=== PATIENT | female | born 1945 ===

== ENCOUNTER → 2017-01-06 | Outpatient (CLI) | payer MEDICARE, OTHER ==
[2017-01-06 15:06] LABS: ALBUMIN 3.8 gm/dL (3.5-5.0); BLOOD UREA NITROGEN 14 mg/dL (6-24); CHLORIDE 106 mMol/L (96-110); CO2 32 mMol/L (22-32); CREATININE 0.9 mg/dL (0.5-1.1); ESTIMATED GFR (MDRD EQUATION) > 60; MAGNESIUM 2.2 mg/dL (1.8-2.6); PHOSPHORUS 2.5 mg/dL (2.5-4.9); SODIUM 141 mMol/L (135-145)
== END ==
LOC: LCNC 14:35
PROVIDERS: Internal Medicine Interventional Cardiology
DX: R00.2 Palpitations (principal)

== ENCOUNTER → 2017-01-16 | Outpatient (CLI) | payer MEDICARE, OTHER ==
--- NOTE | ~2017-01-16 | ESTC ---
Cardiac Perfusion Imaging Demographics Patient Name DANYA Ugalde Gender Female Patient Number [id number] Race Visit Number [id number] Ethnicity [employer] ID Room Number Accession Number [id number] Height 61 inches Date of 1945 Weight 206 pounds Interpreting Abhilash Webster MD Date of study 01/16/2017 Physician Supervising /MADHU Parks [place] Technologist Ghazal Roberts APRN Ordering Physician Abhilash Webster MD Stress records technician Stress ECG Reading [place] Nurse Cheyanne Murphy Physician ADRIANE RN Medications Reviewed with Patient prior to Procedure. Procedure Procedure Type: Nuclear Stress Test:Exercise, Cardiolite Stress Test Procedure Start time: 01/16/2017 08:50 Indications: Chest pain. Risk Factors The patient risk factors include:prior PCI on 09/07/2009;treated hypercholesterolemia, treated hypertension, family history of premature CAD and dyslipidemia. Conclusions Summary Cardiolite SPECT images demonstrate homogenous uptake of radioactive tracer. There is no evidence of inducible reversible defect and no evidence of underlying fixed defect. Normal TID ratio Gated images demonstrate normal left ventricular systolic function without evidence of inducible wall motion abnormalities. LVEF is 79% Stress Protocols Resting ECG RSR without ST or T wave changes Resting HR:75 bpm Resting BP:154/67 mmHg Pre-stress physical exam: Patient assessed by prior to testing. Sore ribs after a fall. Bruise right arm. No chest pain or shortness of breath. Stress Protocol:Exercise Peak HR:130 bpm HR response: Appropriate Peak BP:180/70 mmHg BP response: Appropriate Predicted HR: 148 bpm HR/BP product:66568 % of predicted HR: 88 Test duration:06:00 min Reason for termination:Target heart rate Perceived exertion:13 ECG Findings No ECG changes suggestive of ischemia. Arrhythmias No rhythm abnormality. Symptoms Shortness of breath. Stress Interpretation Appropriate hemodynamic response to exercise. No significant ST-T wave changes with exercise. EKG portion is negative for ischemia by diagnostic criteria. The Pascual Treadmill score was +6 .This corresponds to a low risk stress test. Stress supervision and interpretation provided by Melba Doe APRN . Imaging Results Applied corrections - Motion correction applied High risk findings Summed scores - Summed stress score: 12 - Summed rest score: 6 - Summed difference score: 6 Stress ejection Ejection fraction:78 % EDV :73 ml ESV :16 ml Stroke volume :57 ml LV mass :103 gr Imaging Protocols Rest Stress Isotope:Tc99m Sestamibi IV Isotope: Tc99m Sestamibi IV Isotope dose:14.5 mCi Isotope dose:44.8 mCi Date:01/16/2017 07:35 Date:01/16/2017 09:42 Technique: SPECT Technique: Gated Supine SPECT Supine Scan Time:45-60 minutes post Scan Time:45-60 minutes post injection injection Procedure Medications - Regadenoson (Lexiscan) 0.4 mg IV over 10-15 sec. I.V. 0.4 mg. Medical History Admission Data Admission date: 01/16/2017 Admission Time: 07:12 Hospital Status: Outpatient. Signatures dtt: Darin Hung (cardio) dtd: 01/16/17 0850 Physician Self Edit
== END | disposition disaster alternative care site (69) ==
LOC: GRAD 07:12
DX: R07.9 Chest pain, unspecified (principal); E78.00 Pure hypercholesterolemia, unspecified; I10 Essential (primary) hypertension; E78.5 Hyperlipidemia, unspecified; Z82.49 Family history of ischemic heart disease and other diseases of the circulatory system
CPT/HCPCS: A9500

== ENCOUNTER → 2017-03-03 | Outpatient (CLI) | payer MEDICARE, OTHER | END | disposition disaster alternative care site (69) | LOC: LCNC 13:29 | DX: E03.9 Hypothyroidism, unspecified (principal) ==